=== PATIENT | male | born 1970 ===

== ENCOUNTER 2016-12-27 10:33 | Emergency (ER) | payer OTHER ==
[2016-12-27 10:44] VITALS: RESP 18; TEMP 98.2
[2016-12-27] MEDS ORDERED: Lidocaine 5% Patch TD STA (11:20)
--- NOTE | 2016-12-27 11:24 | C.PDOC ---
History Of Present Illness 46 y/o male with niddm c/o left shoulder pain for 5 days with no preceding trauma, injury or heavy lifting. pain worse when patient moves arm behind his back and at night. pt denies any weakness to upper extremities, numbness, tingling, no neck pain. no analgesics tried. no fevers. Time Seen by Provider: 12/27/16 11:10 Chief Complaint (Nursing): Upper Extremity Problem/Injury History/Exam Limitations: no limitations Onset/Duration Of Symptoms: Days (5) Current Symptoms Are (Timing): Still Present Quality: "Pain" Severity: Mild Pain Scale Rating Of: 5 Exacerbating Factor(s): Movement, Worse At Night Past Medical History Reviewed: Historical Data, Nursing Documentation, Vital Signs Vital Signs: Last Vital Signs Temp 98.2 F 12/27/16 10:38 Pulse 73 12/27/16 10:38 Resp 18 12/27/16 10:38 BP 143/81 12/27/16 10:38 Pulse Ox 98 12/27/16 11:34 - Medical History PMH: Diabetes Surgical History: No Surg Hx Family History: States: Unknown Family Hx - Social History Hx Alcohol Use: Yes Hx Substance Use: No Review Of Systems Constitutional: Negative for: Fever, Chills Musculoskeletal: Positive for: Shoulder Pain (left). Negative for: Neck Pain, Arm Pain, Back Pain, Hand Pain Skin: Negative for: Rash Neurological: Negative for: Weakness, Numbness Physical Exam - Physical Exam Appears: Non-toxic, No Acute Distress Skin: Normal Color, Warm, Dry Head: Atraumatic, Normacephalic Neck: Normal ROM, No Midline Cervical Tenderness, No Paracervical Tenderness Chest: Symmetrical, No Deformity, No Tenderness Back: Normal Inspection Extremity: Normal ROM, Tenderness (mild tenderness to proximal left shoulder), Capillary Refill (less than 2 sec) Extremity: Bilateral: Atraumatic Pulses: Left Radial: Normal, Right Radial: Normal Neurological/Psych: Oriented x3, Normal Speech, Normal Cognition, Normal Motor, Normal Sensation ED Course And Treatment O2 Sat by Pulse Oximetry: 98 Medical Decision Making Medical Decision Making: pt with 5 days shoulder pain, worse with movement, no neurological symptoms, no neck pain. will tx with nsaids, f/u pmd and ortho once home in DR. Disposition Counseled Patient/Family Regarding: Diagnosis, Need For Followup - Disposition Disposition: HOME/ ROUTINE Disposition Time: 12:14 Condition: STABLE Additional Instructions: Por favor tome ibuprofen 600 mg por va oral cada 6 horas (con alimentos) para el dolor si es necesario. Trate de no dormir en el lado bud. Siga con vargas m dico de atencin primaria y / o un ortopedista cuando llegue a casa. Evite levantar objetos pesados. Regrese a ER para cualquier empeoramiento de los s ntomas. Instructions: Shoulder Pain (ED) Forms: Gen Discharge Inst Faroese, [facility] (Faroese) - Clinical Impression Clinical Impression: Left shoulder pain
[2016-12-27] MEDS ORDERED: Lidocaine 5% Patch TD ONE (11:25)
[2016-12-27 12:34] VITALS: BP 129/78; PULSE 70
[2016-12-28 10:04] VITALS: O2SAT 98
== END 2016-12-27 12:35 | disposition home or self-care (01) ==
LOC: C.ER 10:33
DX: M25.512 Pain in left shoulder (principal)

== ENCOUNTER 2017-01-31 10:39 | Emergency (ER) | payer OTHER ==
[2017-01-31 10:48] VITALS: RESP 18; O2SAT 99
--- NOTE | 2017-01-31 11:42 | C.PDOC ---
Time Seen by Provider: 01/31/17 11:03 Chief Complaint (Nursing): Upper Extremity Problem/Injury Past Medical History Vital Signs: Last Vital Signs Temp 98.2 F 01/31/17 10:46 Pulse 61 01/31/17 10:46 Resp 18 01/31/17 10:46 BP 141/93 H 01/31/17 10:46 Pulse Ox 99 01/31/17 10:46 - Medical History PMH: Diabetes Family History: States: Unknown Family Hx - Social History Hx Alcohol Use: Yes Hx Substance Use: No - Immunization History Hx Tetanus Toxoid Vaccination: No Hx Influenza Vaccination: No Hx Pneumococcal Vaccination: No ED Course And Treatment O2 Sat by Pulse Oximetry: 99 Disposition - Disposition Forms: [employer] (Italian)
--- NOTE | 2017-01-31 12:31 | C.PDOC ---
History Of Present Illness Pepe Rosa is a 46 year old male, with a past medical history of diabetes, who presents to the emergency department complaining of left shoulder pain onset for 6 weeks. Patient denies any fever,trauma, or heavy lifting. Pain is worse when patient moves arm behind his back and laying down on his back. Pt denies any weakness to upper extremities, numbness, tingling, or neck pain. Patient was in ED on 12/27/16 and was advised ibuprofen with no relief . Patient didn't follow up with PMD or orthopedic. PMD: None provided. Time Seen by Provider: 01/31/17 11:03 Chief Complaint (Nursing): Upper Extremity Problem/Injury History Per: Patient History/Exam Limitations: no limitations Onset/Duration Of Symptoms: Days (6 weeks) Current Symptoms Are (Timing): Still Present Quality: "Pain" Severity: Mild Exacerbating Factor(s): Movement, Worse At Night Past Medical History Reviewed: Historical Data, Nursing Documentation, Vital Signs Vital Signs: Last Vital Signs Temp 97.4 F L 01/31/17 13:17 Pulse 58 L 01/31/17 13:17 Resp 18 01/31/17 13:17 BP 138/77 01/31/17 13:17 Pulse Ox 99 01/31/17 13:37 - Medical History PMH: No Chronic Diseases, Diabetes Family History: States: Unknown Family Hx - Social History Hx Tobacco Use: No Hx Alcohol Use: Yes Hx Substance Use: No - Immunization History Hx Tetanus Toxoid Vaccination: No Hx Influenza Vaccination: No Hx Pneumococcal Vaccination: No Review Of Systems Except As Marked, All Systems Reviewed And Found Negative. Constitutional: Negative for: Fever, Weakness Musculoskeletal: Positive for: Shoulder Pain (pain worse when putting his arm behind back and when laying down). Negative for: Neck Pain, Back Pain Neurological: Negative for: Numbness (or tingling ) Physical Exam - Physical Exam Appears: Well, Non-toxic, No Acute Distress Skin: Normal Color, Warm, Dry Head: Atraumatic, Normacephalic Eye(s): bilateral: Normal Inspection, PERRL, EOMI Ear(s): Bilateral: Normal Nose: Normal Tongue: Normal Appearing Lips: Normal Appearing Throat: Normal Neck: Normal, Normal ROM, No Midline Cervical Tenderness, No Paracervical Tenderness Chest: Symmetrical, No Deformity, No Tenderness Respiratory: Normal Breath Sounds Extremity: Normal ROM, Tenderness (mild tenderness to proximal left shoulder), Capillary Refill (<2 sec) Extremity: Left: Other, Bilateral: Atraumatic Pulses: Left Radial: Normal, Right Radial: Normal Neurological/Psych: Oriented x3, Normal Speech, Normal Cognition, Normal Motor, Normal Sensation ED Course And Treatment O2 Sat by Pulse Oximetry: 99 (RA) Pulse Ox Interpretation: Normal Medical Decision Making Medical Decision Making: Initial Impression: Left shoulder pain Initial Plan: --tylenol 650 mg PO --Shoulder left Xray: neg for acute fx or dislocation Scribe Attestation The documentation for this encounter was entered by Forrest Rashid acting as a scribe for Sienna PRESLEY All medical record entries made by the Scribe were at my direction and personally dictated by me. I have reviewed the chart and agree that the record accurately reflects my personal performance of the history, physical exam, medical decision making, and the department course for this patient. I have also personally directed, reviewed, and agree with the discharge instructions and disposition. Disposition Counseled Patient/Family Regarding: Studies Performed, Diagnosis, Need For Followup, Rx Given - Disposition Referrals: Tyree Millan MD [Staff Provider] - Disposition: HOME/ ROUTINE Disposition Time: 12:55 Condition: STABLE Additional Instructions: FOLLOW UP WITH PMD/CLINIC AND ORTHOPEDIST FOR FOLLOW UP. POR FAVOR TOME IBUPROFEN 600 MG POR VIA ORAL CADA 6 HORAS PARA EL DOLOR SE ES NECESARIO. TRATE DE NO DORMIR EN EL LADO MUREIL. SIGA CON TAVERAS MEDICO DE ATENCION PRIMARIA Y / O UN ORTOPEDISTA CUANDO LLEGUE A CASA. EVITE LEVANTAR OBJECTOS PESADOS. REGRESE A ER PARA CUALQUIER EMPEORAMIENTO DE LOS SINTOMAS. Instructions: Shoulder Pain (ED) Forms: [facility] (Kazakh), Gen Discharge Inst Norwegian Print Language: CYPRIOT - Clinical Impression Clinical Impression: Left shoulder strain
--- NOTE | 2017-01-31 12:58 | RAD ---
PROCEDURE: Radiographs of the Left Shoulder HISTORY: PAIN COMPARISON: No prior. FINDINGS: BONES: No evidence of acute fracture. JOINTS: Normal. Glenohumeral and acromioclavicular joints preserved. No osteoarthritis. SOFT TISSUES: Normal. OTHER FINDINGS: None. IMPRESSION: No evidence of acute fracture or dislocation.
[2017-01-31 13:19] VITALS: BP 138/77; PULSE 58; TEMP 97.4
== END 2017-01-31 13:40 | disposition home or self-care (01) ==
LOC: C.ER 10:39
DX: S46.912A Strain of unspecified muscle, fascia and tendon at shoulder and upper arm level, left arm, initial encounter (principal); X58.XXXA Exposure to other specified factors, initial encounter; Y93.9 Activity, unspecified; Y92.9 Unspecified place or not applicable

== ENCOUNTER 2017-05-24 07:53 | Emergency (ER) | payer OTHER ==
[2017-05-24 08:19] VITALS: O2SAT 100
--- NOTE | 2017-05-24 08:59 | C.PDOC ---
History Of Present Illness Patient is a 47 y/o male who presents to the ED with a complaint of left shoulder pain for the last four months. Pain is localized over the left shoulder and worsens with left arm movement. Patient notes having a strenuous job requiring consistent pulling and pushing, otherwise denying any CP, SOB, weakness, or other focal deficits. No other physical complaints at this time. Time Seen by Provider: 05/24/17 08:09 Chief Complaint (Nursing): Upper Extremity Problem/Injury History Per: Patient History/Exam Limitations: no limitations Onset/Duration Of Symptoms: Days (4 months) Current Symptoms Are (Timing): Still Present Quality: "Pain" Exacerbating Factor(s): Strenuous Use Of Affected Area, Movement Recent travel outside of the [place]: No Past Medical History Reviewed: Historical Data, Nursing Documentation, Vital Signs Vital Signs: Last Vital Signs Temp 98.5 F 05/24/17 08:05 Pulse 72 05/24/17 08:05 Resp 20 05/24/17 08:05 BP 130/88 05/24/17 08:05 Pulse Ox 100 05/24/17 09:16 - Medical History PMH: Diabetes Surgical History: No Surg Hx Family History: States: Unknown Family Hx - Social History Hx Tobacco Use: No Hx Alcohol Use: Yes Hx Substance Use: No - Immunization History Hx Tetanus Toxoid Vaccination: No Hx Influenza Vaccination: No Hx Pneumococcal Vaccination: No Review Of Systems Constitutional: Negative for: Weakness Cardiovascular: Negative for: Chest Pain Respiratory: Negative for: Shortness of Breath Musculoskeletal: Positive for: Shoulder Pain (left shoulder) Physical Exam - Physical Exam Appears: Well, Non-toxic, No Acute Distress Skin: Normal Color, Warm, Dry, No Rash, No Ecchymosis Eye(s): bilateral: PERRL Oral Mucosa: Moist Neck: Trachea Midline, No Midline Cervical Tenderness, No Paracervical Tenderness, No Step Off Deformity, Supple Chest: Symmetrical Cardiovascular: Rhythm Regular, No Murmur, No JVD, Other ((-) carotid bruits B/L ) Respiratory: Normal Breath Sounds, No Decreased Breath Sounds, No Accessory Muscle Use, No Stridor, No Wheezing Back: No Vertebral Tenderness, No Paraspinal Tenderness Extremity: Normal ROM (Left shoulder), Tenderness (mild over superior aspect left shoulder), No Deformity, No Swelling Neurological/Psych: Oriented x3, Normal Speech, Normal Cognition, Normal Motor, Normal Sensation, Normal Reflexes ED Course And Treatment ECG: Interpreted By Me, Viewed By Me ECG Rhythm: Sinus Bradycardia Interpretation Of ECG: Sinus della@62/min, NAD, no acute T wave or ST-T changes, O2 Sat by Pulse Oximetry: 100 Pulse Ox Interpretation: Normal Progress Note: EKG and left shoulder xr ordered. On re-eval, pt is afebrile, hemodynamicaly stable. non-toxic. Neck: SUpple, (-) JVD, (-) carotid bruits B/ L. Lungs: CTA B/L, BS equqal B/L. CVS: (+)S1S2, reg. LUE: exam c/w shoulder tendonitis. No defomrity, no skin hcanges. FAROM, no neurovascular deficits. Imaging and EKG- normal study. Pt advised and ref. to f/u with Ortho in2 -3 days for re-eavl. return if any new changes. Disposition Counseled Patient/Family Regarding: Studies Performed, Diagnosis, Need For Followup, Rx Given - Disposition Referrals: [facility] [Outside] Qasim Oliver MD [Staff Provider] - Disposition: HOME/ ROUTINE Disposition Time: 09:06 Condition: STABLE Additional Instructions: LIGHT DUTY TO LEFT SHOULDER, AVOID LIFTING LEFT ARM FOR 2-3 WEEKS TAKE MEDICATION PRESCRIBED FOLLOW UP WITH PMD AND ORTHOPEDIST IN 2-3 DAYS FOR FURTHER EVALUATION AND TREATMENT. RETURN IF ANY NEW CHANGES. Prescriptions: Prednisone [Deltasone] 20 mg PO DAILY #3 tablet traMADol [Ultram] 50 mg PO TID #7 tab Instructions: Shoulder Pain (ED), Shoulder Sprain (ED) Forms: [employer] (Yoruba) Print Language: VIETNAMESE - Clinical Impression Clinical Impression: Shoulder tendonitis - Scribe Statement The provider has reviewed the documentation as recorded by the Scribe Jazmín Zavala All medical record entries made by the Scribe were at my direction and personally dictated by me. I have reviewed the chart and agree that the record accurately reflects my personal performance of the history, physical exam, medical decision making, and the department course for this patient. I have also personally directed, reviewed, and agree with the discharge instructions and disposition.
[2017-05-24 09:47] VITALS: BP 133/83; PULSE 61; RESP 18; TEMP 97.5
--- NOTE | 2017-05-24 10:58 | RAD ---
PROCEDURE: Radiographs of the Left Shoulder HISTORY: pain COMPARISON: Comparison is made to the previous study dated 01/31/2017 FINDINGS: BONES: Normal. No fracture. JOINTS: . Glenohumeral and acromioclavicular joints preserved. Mild osteoarthritis is noted. SOFT TISSUES: Normal. OTHER FINDINGS: Narrowing of the subacromial space is again noted. Correlate clinically for rotator cuff tear. IMPRESSION: No evidence of acute fracture. No significant interval change noted since the previous exam. Narrowing of the subacromial space. Correlate clinically for rotator cuff tear. If indicated further assessment by MRI of the shoulder may be obtained.
--- NOTE | 2017-05-26 00:03 | CARD ---
APPROVED REPORT EKG Measurement Heart [id number] <Conclusion> Normal sinus rhythm Normal ECG
== END 2017-05-24 10:02 | disposition home or self-care (01) ==
LOC: C.ER 07:53
DX: M75.92 Shoulder lesion, unspecified, left shoulder (principal)
CPT/HCPCS: 73030; 82948; 93005; 96372; 99284; J2930

== ENCOUNTER 2018-04-23 09:11 | Emergency (ER) | payer BC ==
[2018-04-23 09:29] VITALS: RESP 18; O2SAT 100
--- NOTE | 2018-04-23 09:52 | C.PDOC ---
History Of Present Illness 47 y/o male with a PMHx of DM (on metformin), presents to the ED complaining of left inguinal pain for 1 week. This morning he went to the clinic, and was sent to ED for further evaluation. Otherwise patient denies any nausea, vomiting, diarrhea, fever, or chills. Pain is worse when he is working and ambulating. When lying down, pain resolves. Pain has been worsening since onset. Time Seen by Provider: 04/23/18 09:28 Chief Complaint (Nursing): Abdominal Pain History Per: Continuous Improvement Engineer (Santhosh, #[id number]) History/Exam Limitations: no limitations Onset/Duration Of Symptoms: Days Current Symptoms Are (Timing): Still Present Past Medical History Reviewed: Historical Data, Nursing Documentation, Vital Signs Vital Signs: Last Vital Signs Temp 97.6 F 04/23/18 09:24 Pulse 60 04/23/18 09:24 Resp 18 04/23/18 09:24 BP 145/87 04/23/18 09:24 Pulse Ox 100 04/23/18 09:24 - Medical History PMH: Diabetes Surgical History: No Surg Hx Family History: States: Unknown Family Hx - Social History Hx Tobacco Use: No Hx Alcohol Use: Yes Hx Substance Use: No - Immunization History Hx Tetanus Toxoid Vaccination: No Hx Influenza Vaccination: No Hx Pneumococcal Vaccination: No Review Of Systems Except As Marked, All Systems Reviewed And Found Negative. Constitutional: Negative for: Fever, Chills Gastrointestinal: Negative for: Nausea, Vomiting, Diarrhea Genitourinary: Positive for: Other (Left inguinal pain/swelling). Negative for: Dysuria, Hematuria, Penile Discharge, Scrotal Pain Physical Exam - Physical Exam Appears: Non-toxic, No Acute Distress Skin: Warm, Dry Head: Atraumatic, Normacephalic Eye(s): bilateral: Normal Inspection Neck: Normal ROM Chest: Symmetrical Cardiovascular: Rhythm Regular, No Murmur Respiratory: Normal Breath Sounds, No Rales, No Rhonchi, No Wheezing Gastrointestinal/Abdominal: Soft, No Tenderness, No Distention Male Genital: Inguinal Tenderness (to inguinal hernia), Inguinal Swelling (+ left inguinal hernia, reducible) Extremity: Bilateral: Normal Color And Temperature, Normal ROM Pulses: Left Dorsalis Pedis: Normal, Right Dorsalis Pedis: Normal Neurological/Psych: Oriented x3, Normal Speech ED Course And Treatment - Laboratory Results Result Diagrams: 04/23/18 10:17 04/23/18 10:30 O2 Sat by Pulse Oximetry: 100 (RA) Pulse Ox Interpretation: Normal - CT Scan/US CT Abd/Pelvis Other Rad Studies (CT/US): Read By Radiologist, Radiology Report Reviewed CT/US Interpretation: Accession No. : [id number]. Patient Name / ID : CLOTILDE MARROQUIN / [id number]. Exam Date : 04/23/2018 11:55:53 ( Approved ). Study Comment : Sex / Age : M / 47Y. Creator : Oly Florence. Dictator : Jeferson Funk MD. Bearing Maker : Navigation Teacher : Jeferson Funk MD. Approver2 : Report Date : 04/23/2018 12:11:53. My Comment : . Date of service: 04/23/2018. PROCEDURE: CT Abdomen and Pelvis without intravenous contrast. HISTORY: abd pain. COMPARISON: Not available. TECHNIQUE: Without contrast.. Contrast dose: 0. Radiation dose: Total exam DLP = 958.67 mGy-cm. This CT exam was performed using one or more of the following dose reduction techniques: Automated exposure control, adjustment of the mA and/or kV according to patient size, and/or use of iterative reconstruction technique. FINDINGS: LOWER THORAX: Unremarkable. LIVER: Unremarkable. No gross lesion or ductal dilatation. GALLBLADDER AND BILE DUCTS: Unremarkable. PANCREAS: Unremarkable. No gross lesion or ductal dilatation. SPLEEN: Unremarkable. ADRENALS: Unremarkable. No mass. KIDNEYS AND URETERS: Unremarkable. No hydronephrosis. No solid mass. VASCULATURE: Unremarkable. No aortic aneurysm. No aortic atherosclerotic calcification or mural plaque present. BOWEL: Unremarkable. No obstruction. No gross mural thickening. APPENDIX: Unremarkable. Normal appendix. PERITONEUM: No ascites or pneumoperitoneum. Small umbilical hernia containing only mesenteric fat. Right inguinal hernia containing mesenteric fat. There is lipomata tissue in the left inguinal canal which does not appear to be herniated from the peritoneal cavity and may represent a lipoma of the spermatic cord. LYMPH NODES: Unremarkable. No enlarged lymph nodes. BLADDER: Unremarkable. REPRODUCTIVE: Normal prostate. BONES: No acute fracture. OTHER FINDINGS: None. IMPRESSION: No acute abnormality. Incidental minor findings as. Medical Decision Making Medical Decision Making: Impression: Left inguinal hernia Initial Plan: --VBG --CT Abd/Pelvis with PO contrast --Blood work --Toradol 30 mg IM Progress: CT report viewed, showing bilateral inguinal hernia. Nothing incarcerated or strangulated. Patient is stable for discharge home, advised to follow up with surgery for ou tpatient management. Disposition - Disposition Referrals: Dorian Franklin MD [Staff Provider] - Disposition: HOME/ ROUTINE Disposition Time: 13:06 Condition: GOOD Additional Instructions: Please call to make an appointment with the surgeon as soon as possible. Prescriptions: Ibuprofen [Motrin] 600 mg PO Q6 #20 tab Instructions: Inguinal and Femoral (Groin) Hernias Forms: [employer] (Kazakh) - Clinical Impression Clinical Impression: Inguinal hernia - Scribe Statement The provider has reviewed the documentation as recorded by the Tammy Aburto Provider Attestation: All medical record entries made by the Mollyibhailee were at my direction and personally dictated by me. I have reviewed the chart and agree that the record accurately reflects my personal performance of the history, physical exam, medical decision making, and the department course for this patient. I have also personally directed, reviewed, and agree with the discharge instructions and disposition.
[2018-04-23 10:15] LABS: BASO % 0.8 % (0.0-2.0); EOS # 0.1 K/uL (0.0-0.7); EOS % 1.6 % (0.0-4.0); HEMOGLOBIN 14.8 g/dL (12.0-18.0); LYMPH # 2.5 K/uL (1.0-4.3); LYMPH % 45.9 % (20.0-40.0); MEAN CELL VOLUME 93.5 fL (80.0-94.0); MEAN CORPUSCULAR HGB CONC 34.2 g/dL (33.0-37.0); MEAN PLATELET VOLUME 8.2 fL (7.2-11.7); MONO # 0.9 K/uL (0.0-0.8); NEUT % 35.7 % (50.0-75.0); RBC 4.62 Mil/uL (4.40-5.90); RED CELL DISTRIBUTION WIDTH 13.4 % (11.5-14.5); WHITE BLOOD COUNT 5.6 K/uL (4.8-10.8)
[2018-04-23] MEDS ORDERED: Iohexol 240 (50 ml) ONE (10:15)
[2018-04-23] MEDS ORDERED: Iohexol 240 (50 ml) PO ONE (10:21)
[2018-04-23 10:58] LABS: VENOUS BLOOD GAS BASE EXCESS 3.7 mmol/L (0.0-2.0); VENOUS BLOOD GAS PCO2 54 mmHg (40-60); VENOUS BLOOD GAS PO2 27 mm/Hg (30-55); VENOUS BLOOD PH 7.36 (7.32-7.43)
[2018-04-23 11:05] LABS: ALB/GLOB RATIO 1.5 (1.0-2.1); ALBUMIN 4.4 g/dL (3.5-5.0); BLOOD UREA NITROGEN 12 mg/dL (9-20); GFR NON-AFRICAN AMERICAN > 60; LIPASE 121 U/L (23-300)
[2018-04-23 11:11] LABS: ALT/SGPT 37 U/L (21-72); AST/SGOT 30 U/L (17-59)
[2018-04-23 12:26] VITALS: BP 122/60; PULSE 66; TEMP 98.2
--- NOTE | 2018-04-23 12:30 | CT ---
Date of service: 04/23/2018 PROCEDURE: CT Abdomen and Pelvis without intravenous contrast HISTORY: abd pain COMPARISON: Not available TECHNIQUE: Without contrast.. Contrast dose: 0 Radiation dose: Total exam DLP = 958.67 mGy-cm. This CT exam was performed using one or more of the following dose reduction techniques: Automated exposure control, adjustment of the mA and/or kV according to patient size, and/or use of iterative reconstruction technique. FINDINGS: LOWER THORAX: Unremarkable. LIVER: Unremarkable. No gross lesion or ductal dilatation. GALLBLADDER AND BILE DUCTS: Unremarkable. PANCREAS: Unremarkable. No gross lesion or ductal dilatation. SPLEEN: Unremarkable. ADRENALS: Unremarkable. No mass. KIDNEYS AND URETERS: Unremarkable. No hydronephrosis. No solid mass. VASCULATURE: Unremarkable. No aortic aneurysm. No aortic atherosclerotic calcification or mural plaque present. BOWEL: Unremarkable. No obstruction. No gross mural thickening. APPENDIX: Unremarkable. Normal appendix. PERITONEUM: No ascites or pneumoperitoneum. Small umbilical hernia containing only mesenteric fat. Right inguinal hernia containing mesenteric fat. There is lipomata tissue in the left inguinal canal which does not appear to be herniated from the peritoneal cavity and may represent a lipoma of the spermatic cord. LYMPH NODES: Unremarkable. No enlarged lymph nodes. BLADDER: Unremarkable. REPRODUCTIVE: Normal prostate BONES: No acute fracture. OTHER FINDINGS: None. IMPRESSION: No acute abnormality. Incidental minor findings as.
== END 2018-04-23 13:06 | disposition home or self-care (01) ==
LOC: C.ER 09:11
DX: K40.90 Unilateral inguinal hernia, without obstruction or gangrene, not specified as recurrent (principal)
CPT/HCPCS: 74176; 80053; 82803; 83690; 85025; 96374; 99284; J1885; Q9966

== ENCOUNTER 2018-06-01 09:16 | Outpatient (CLI) | payer BC | END 2018-06-01 09:17 | disposition home or self-care (01) | LOC: C.PAT 09:16 | DX: K40.90 Unilateral inguinal hernia, without obstruction or gangrene, not specified as recurrent (principal) ==

== ENCOUNTER 2018-06-09 06:21 | Day surgery (SDC) | payer BC ==
[2018-06-01 09:28] VITALS: BMI 29.5
[2018-06-09] MEDS ORDERED: ceFAZolin 1 gm in NS 2 GM/200 ML BAG IVPB ONE (07:30)
[2018-06-09] MEDS ORDERED: Bupivacaine 0.25% 20 ML INJ IJ ONE (07:30)
[2018-06-09] MEDS ORDERED: Lidocaine/Epinephrine 1% 1:100000 10 ML IJ ONE (07:30)
[2018-06-09] MEDS ORDERED: Bupivacaine Liposomal Inj 20 ml INFIL ONE (07:38)
[2018-06-09] MEDS ORDERED: Midazolam 2 MG/2 ML VIAL ONE (07:49)
[2018-06-09] MEDS ORDERED: Propofol 10 mg/ml Inj (20 ML) ONE (07:49)
[2018-06-09] MEDS ORDERED: Sodium Chloride 0.9% 40 ML IV ONE (08:43)
[2018-06-09] MEDS ORDERED: Neostigmine 1:1000 (1 mg/ml) Inj ONE (10:17)
[2018-06-09] MEDS ORDERED: HYDROmorphone 0.5 mg/0.5 ml ISec IVP PRN (10:44)
[2018-06-09] MEDS ORDERED: Oxycodone/Acetaminophen 5/325 mg Tab PO PRN (11:34)
[2018-06-09 11:37] VITALS: RESP 16
[2018-06-09 12:48] VITALS: PULSE 76; TEMP 96.9; O2SAT 97
[2018-06-09 13:12] VITALS: BP 123/69
--- NOTE | 2018-06-09 22:17 | OP ---
PROCEDURE DATE: 06/09/2018 PREOPERATIVE DIAGNOSIS: Bilateral inguinal hernia. POSTOPERATIVE DIAGNOSIS: Bilateral inguinal hernia. PROCEDURES DONE: 1. Robotic bilateral inguinal hernia repair with mesh. 2. Robotic excision of the left side spermatic cord lipoma. 3. Laparoscopic bilateral transversus abdominis plane block placement. ANESTHESIA: General endotracheal tube anesthesia. ESTIMATED BLOOD LOSS: Around 10 mL. DRAINS: None. PATHOLOGY: The lipoma of the left spermatic cord was sent to the pathology. The patient also had very small lipoma of the right sac that was also sent for the pathology. COMPLICATIONS: None. INTRAOPERATIVE FINDINGS: The patient had left indirect and right direct inguinal hernia and the patient also had a large lipoma of the cord of the left side. DESCRIPTION OF PROCEDURE: On intraoperative steps, this is a 48-year-old male who was diagnosed with bilateral inguinal hernia and the patient was consented for the robotic bilateral inguinal hernia repair with mesh, possible open, brought to the OR, placed supine on operating table. After induction of the anesthesia, the abdomen was prepped and draped in usual sterile fashion. The supraumbilical transverse incision was made using open technique, robotic camera port was placed, pneumo was created. Another 3.8 mm port was placed in upper abdomen. Robot was brought in. Camera arm as well as arm 1 and arm 2 were docked. The peritoneum was incised from the left ASIS up to the right ASIS and the dissection was carried down medially up to the space of Retzius. Laterally, the peritoneum was from the lateral abdominal wall, and vas deferens and spermatic cord vessels were identified and dissection was carried down to reduce the direct hernial sac, and there was also a small lipoma of the sac that was also excised and now the inferior dissection was done up to the pelvic brim. A similar dissection was done on the left side and peritoneum was from the lateral abdominal wall. The vas deferens and spermatic cord vessels were also . The sac was reduced back into the peritoneal cavity and the inferior dissection was done up to the pelvic brim. Now, the right and left anatomical mesh was placed. After proper implantation of the mesh, the peritoneum was sutured with 0 Vicryl interrupted suture and 3-0 PDS continuous suture and the specimen was sent off the table for the pathology. Now, the procedure was converted to laparoscopic and the laparoscopic bilateral TAP block was given, 30:30 mL of EXPAREL was injected in the transverse abdominal muscle plane area and after proper block bilaterally, all the instruments were taken out. Pneumo was deflated. All the port was taken out under vision and umbilical port site was closed in two-layer, the fascia with 0 Vicryl interrupted suture, skin with 4-0 Monocryl and dry sterile dressing was applied. The patient tolerated procedure well. Count of instrument was correct. There was no apparent complication. The patient was extubated in OR and sent to the postanesthesia care unit in stable condition. Dorian Franklin MD
== END 2018-06-09 13:56 | disposition home or self-care (01) ==
LOC: C.SDS 06:21
PROVIDERS: ATTEND Surgery Surgical Critical Care
DX: K40.20 Bilateral inguinal hernia, without obstruction or gangrene, not specified as recurrent (principal); D17.6 Benign lipomatous neoplasm of spermatic cord; E11.9 Type 2 diabetes mellitus without complications; Z79.84 Long term (current) use of oral hypoglycemic drugs
CPT/HCPCS: 49650; 55559; 82948; 88302; J0690; J1885; J2250; J2405; J2704; J2710; J3010